=== PATIENT | male | born 1975 | race Caucasian/White ===

== ENCOUNTER 2020-03-09 13:54 | Emergency (ER) | payer OTHER ==
[~2020-03-09] VITALS: Ht 167.6 cm; Wt 79.4 kg
[~2020-03-09 13:54] MED LIST: BENTYL 10 MG CA10 MG PO; HYCET 7.5 MG-3473 ML PO; LORTAB ELIXIR PER TUBE; NOHOMEMEDICATIONS; PEPTO-BISMOL1 TAB PO; PREVACID30 MG PO; PROTONIX40 M1 PO; VITAMIN D3400 UNI1 PER TUBE; ZPAK PER TUBE
[2020-03-09 14:56] LABS: ABSOLUTE BASOPHILS 0.1 thou/uL (0.0-0.2); ABSOLUTE LYMPHOCYTES 1.6 thou/uL (0.8-5.3); ABSOLUTE MONOCYTES 0.3 thou/uL (0.0-1.2); ABSOLUTE NEUTROPHILS 6.2 thou/uL (1.6-8.1); BASOPHILS 0.8 %; EOSINOPHILS 0.3 %; HEMOGLOBIN 12.8 gm/dL (14.0-18.0); LYMPHOCYTES 19.5 %; MCH 30.7 pg (26.0-34.0); MCHC 33.8 g/dL (28.0-37.0); MCV 90.9 fL (80.0-100.0); MONOCYTES 3.1 %; MPV 7.3 fl. (7.2-11.1); NUCLEATED RBCS 0 /100WBC; PLATELET COUNT* 283 thou/uL (150-400); POLYS 76.3 %; RBC 4.18 mil/uL (4.50-6.00); RDW-CV 13.3 % (10.5-14.5); WBC 8.1 thou/uL (4.0-11.0)
[2020-03-09 15:07] LABS: CALCIUM 8.5 mg/dL (8.5-10.1); CREATININE 0.9 mg/dL (0.6-1.3); POTASSIUM 3.5 mmol/L (3.5-5.1)
[2020-03-09 15:08] LABS: APTT 23.6 Seconds (25.0-31.3); PROTIME 10.3 Seconds (9.20-11.50)
[2020-03-09 15:12] LABS: ALBUMIN 3.6 g/dL (3.4-5.0); TOTAL BILIRUBIN 0.3 mg/dL (<0.1-1.0); TOTAL PROTEIN 7.9 g/dL (6.4-8.2)
[2020-03-09 16:31] VITALS: BP 143/97
== END 2020-03-09 16:33 | disposition home or self-care (01) ==
LOC: M.ERS 13:54
PROVIDERS: Nurse Practitioner Family
DX: F45.8 Other somatoform disorders (principal); F12.10 Cannabis abuse, uncomplicated; Z79.899 Other long term (current) drug therapy